=== PATIENT | female | born 1955 | race Caucasian/White ===

== ENCOUNTER → 2023-04-28 08:20 | Outpatient (REF) | payer MEDICARE, OTHER, SELFPAY ==
[2023-04-28 09:18] LABS: ALT (SGPT) 17 U/L (0-35); AST (SGOT) 26 U/L (14-36); Albumin 4.1 g/dl (3.5-5.0); Alkaline Phosphatase 69 U/L (38-126); Blood Urea Nitrogen 22 mg/dl (7-17); Calcium 9.1 mg/dl (8.4-10.2); Carbon Dioxide 32 mmol/L (22-30); Chloride 101 mmol/L (98-107); Glucose 91 mg/dl (70-99); Potassium 4.3 mmol/L (3.5-5.1); Sodium 136 mmol/L (135-145); Total Bilirubin 1.2 mg/dl (0.2-1.3); Total Protein 6.6 g/dl (6.3-8.2); eGFR > 60.00
[2023-04-28 09:35] LABS: Intact PTH 45.2 pg/ml (13.6-85.8)
[2023-04-28 09:36] LABS: Vitamin D, 25-OH*** 43.9 ng/mL (30-80)
[2023-04-28 09:49] LABS: Cortisol, Random 14.3 ug/dl
[2023-05-01 21:07] LABS: Albumin 4.04 g/dL (3.75-5.01); Alpha 1 Globulin 0.22 g/dL (0.19-0.46); SPEP IFE Reflex Not Done; Total Protein-Electrophoresis 6.5 g/dL (6.3-8.2)
== END ==
LOC: REG 08:20
PROVIDERS: ATTENDING PHYSICIAN Physician Assistant; FAMILY PHYSICIAN Internal Medicine
DX: E21.5 Disorder of parathyroid gland, unspecified (principal); E55.9 Vitamin D deficiency, unspecified; M81.0 Age-related osteoporosis without current pathological fracture
CPT/HCPCS: 36415; 80053; 82306; 82533; 83970; 84155; 84165

== ENCOUNTER → 2023-05-01 12:31 | Outpatient (REF) | payer MEDICARE, OTHER, SELFPAY | LOC: PAVMRI 12:31 | PROVIDERS: ATTENDING PHYSICIAN Orthopaedic Surgery; FAMILY PHYSICIAN Internal Medicine | DX: M25.511 Pain in right shoulder (principal) | CPT/HCPCS: 73221 ==

== ENCOUNTER 2023-06-22 10:12 | Emergency (ER) | payer MEDICARE, OTHER, SELFPAY ==
[2023-06-22 10:19] VITALS: BP 139/86
--- NOTE | 2023-06-22 10:54 | ED.GENMED ---
History of Present Illness
General
Chief Complaint: Heart Rate Problem
Source: patient
Exam Limitations: none
Time Seen by Provider: 06/22/23 10:32
Nursing documentation reviewed up to this point in time: agreed with
Travel History
Have you had any contact with someone who has COVID-19?: No
Do you have any symptoms of coronavirus? Fever > 100 degrees, chills, cough, shortness of breath, sore throat, loss of taste or smell, muscle aches, or headache?: No
History of Present Illness
History of Present Illness:
67-year-old female presents for department due to elevated heart rate of 168 while on stair climber. She states it does not usually get this time. She does use the stair climber frequently. She denies any chest pain or shortness of breath, just
felt her heart rate elevated. While getting EKG, she states she felt it break and now feels fine.
Past History
Past History
ED Past Medical History: GERD and Other (Reactive airway disease, anemia)
ED Past Surgical History: None and Other (Right finger cyst removal, oral surgery)
Social History
Tobacco: Non-smoker
Alcohol: Occasional
Drug: None
Personal:
Living: with family
Review of Systems
Review of Systems
Allergies reviewed?: Yes
All Other Systems: Not applicable
Constitutional: Reports no symptoms
EENT: Reports no symptoms
Respiratory: Reports no symptoms; Denies trouble breathing
Cardiac: Reports palpitations; Denies chest pain or syncope
ABD/GI: Reports no symptoms
: Reports no symptoms
Musculoskeletal: Reports no symptoms
Skin: Reports no symptoms
Neurological: Reports no symptoms
Endocrine: Reports no symptoms
Hematologic/Lymphatic: Reports no symptoms
Psychiatric: Reports no symptoms
Phy Exam
Physical Exam
Physical Exam:
Physical Exam
General: no apparent distress, not acutely ill
Neck: supple. no meningeal signs. normal posterior pharynx
Heart: s1/s2 regular rate and rhythm, no murmur. equal radial
pulses.
HEENT: Pupils equal round reactive to light, EOMI
Lungs: no acute respiratory distress. clear bilaterally
Abdomen: normal bowel sounds. not tender. no CVAT
Neuro: alert and oriented. no focal neurological deficits cranial nerves II through XII intact
Skin: no rash
Psychiatric: well kept. interactive and cooperative
Extremities: no edema. no calf tenderness. negative homans. good distal pulses
Course
Orders/Labs/Results
Orders:
Orders
06/22/23 10:15
ECG [Electrocardiogram (*1)] Urgent
Reason for Study: Palpitations
EKG- Treatment ONCE
06/22/23 10:52
IV Insert/Care/Rem.- Treatment PRN
06/22/23 11:01
Complete Blood Count/With Diff Urgent
Comprehensive Metabolic Panel Urgent
TSH Reflex To Free T4 Urgent
Troponin I Urgent
Abnormal Lab Results
06/22/23
11:01
MCHC 32.8 L g/dL
(33.0-37.0)
Sodium 134 L mmol/L
(135-145)
BUN 24 H mg/dl
(7-17)
06/22/23 11:01
06/22/23 11:01
Vital Signs
Initial and Last Documented VS:
Initial Vital Signs
Temp Pulse Resp BP Pulse Ox
98.7 F 96 16 139/86 99
06/22/23 10:19 06/22/23 10:19 06/22/23 10:19 06/22/23 10:19 06/22/23 10:19
Last Documented Vital Signs
Temp Pulse Resp BP Pulse Ox
98.7 F 78 17 116/68 99
06/22/23 10:19 06/22/23 11:57 06/22/23 11:57 06/22/23 11:57 06/22/23 11:57
MDM/Problems Addressed
Differential Diagnosis Includes:
Dysrhythmia, electrolyte disturbance
MDM/Problems Addressed:
67-year-old female with tachycardia, unclear etiology. No tachycardia while in ED. No chest pain. Stable for discharge. Patient will follow-up with cardiology. Return precautions given.
*Pulse Oximetry
Patient hypoxic: no
*EKG
Interpreted by ED Provider?: Yes
EKG Intrepretation Date: 06/22/23
EKG Intrepretation Time: 10:17
Interpretation: abnormal
Comparison EKG: changes noted
Heart Rate: 103
Rate: tachycardiac
Rhythm: sinus
[place]: normal axis
Interval: normal interval
QRS Pattern: normal QRS
Ischemia: non-specific ST changes
*Pipe Roller Interpretation
Rate: normal
Interpretation: normal
Heart Rate: 80
Rhythm: sinus
*Critical Care Note
Total Time (30-74mins, 75-104mins- exclusive of procedures): Not Applicable
Patient Management
Social determinants of health affecting care: Living situation
Escalation/DeEscalation of care consider admission/obs:
Admit not indicated
ED Attending Note
-
Portions of this chart may have been created with voice recognition software.� Occasional wrong word or��sound alike� substitutions may have occurred due to the inherent limitations of voice recognition software.
Discharge Plan
Departure
Patient Disposition: Home (Routine Discharge)
Date of Disposition: 06/22/23
Time of Disposition: 12:12
Patient with high blood pressure during this ER visit?: No
Condition: Good
Discharge Problem:
Tachycardia
Instructions: Tachycardia
Referrals:
Kyle Morrell MD [Family Provider] -
Shayne Osorio MD [Active] - Call in 1-3 days for appt
Interventions
Interventions:
*Risk Screen - Suicide Last Done: 06/22/23 10:19
*General Assessment Last Done: 06/22/23 10:19
*Neglect/Abuse Screening Last Done: 06/22/23 10:19
ED- Fall Risk Assessment Last Done: 06/22/23 12:20
*ED COVID-19 Vaccine History Last Done: 06/22/23 10:38
*Nursing Disposition Last Done: 06/22/23 12:20
ED- Cardiac Assessment Last Done: 06/22/23 10:44
ED- Pulmonary Assessment Last Done: 06/22/23 10:44
Discharge Date and Time
Discharge Date/Time: 06/22/23 12:22
Print Language: ROMANSH
[2023-06-22 11:10] LABS: % Basophils 0.7 % (0-2); % Eosinophils 2.5 % (0-6); % Immature Granulocytes 0.1 % (0-0.5); % Lymphocytes 22.6 % (20.5-51.1); % Monocytes 7.5 % (1.7-9.3); % Neutrophils 66.6 % (42.2-75.2); Absolute Basophils 0.1 10^3/uL (0-0.2); Absolute Eosinophils 0.2 10^3/uL (0-0.7); Absolute Lymphocytes 1.5 10^3/uL (1.2-3.4); Absolute Monocytes 0.5 10^3/uL (0.1-0.6); Absolute Neutrophils 4.4 10^3/uL (1.4-6.5); Hematocrit 40.5 % (37.0-47.0); Hemoglobin 13.3 g/dL (12.0-16.0); Mean Corp Hgb Conc. 32.8 g/dL (33.0-37.0); Mean Corpuscular Hgb 29.2 pg (27.0-31.0); Mean Platelet Volume 8.7 fL (7.4-10.4); Nucleated Red Blood Cells % 0 %; Platelet Count 275 10^3/uL (130-400); Red Blood Cell Count 4.55 10^6/uL (4.20-5.40); Red Cell Dist. Width 14.2 % (11.5-14.5); White Blood Cell Count 6.7 10^3/uL (4.8-10.8)
[2023-06-22 11:32] LABS: ALT (SGPT) 19 U/L (0-35); AST (SGOT) 28 U/L (14-36); Albumin 4.7 g/dl (3.5-5.0); Alkaline Phosphatase 58 U/L (38-126); Blood Urea Nitrogen 24 mg/dl (7-17); Carbon Dioxide 29 mmol/L (22-30); Chloride 98 mmol/L (98-107); Glucose 98 mg/dl (70-99); Sodium 134 mmol/L (135-145); Total Bilirubin 1.2 mg/dl (0.2-1.3); Total Protein 7.4 g/dl (6.3-8.2); Troponin I < 0.012 ng/ml; eGFR > 60.00
[2023-06-22 11:57] VITALS: BP 116/68
[2023-06-22 11:57] LABS: Potassium 4.3 mmol/L (3.5-5.1)
[2023-06-22 12:01] LABS: TSH Reflex To Free T4 2.97 uIU/ml (0.47-4.68)
== END 2023-06-22 12:22 | disposition home or self-care (01) ==
LOC: EMR 10:12
PROVIDERS: EMERGENCY PHYSICIAN Emergency Medicine; FAMILY PHYSICIAN Internal Medicine
DX: R00.0 Tachycardia, unspecified (principal); K21.9 Gastro-esophageal reflux disease without esophagitis; J45.909 Unspecified asthma, uncomplicated; D64.9 Anemia, unspecified
CPT/HCPCS: 99283; 80053; 84443; 84484; 85025; 93005

== ENCOUNTER → 2023-09-11 07:01 | Outpatient (REF) | payer MEDICARE, OTHER, SELFPAY | LOC: MRI 3T 07:01 | PROVIDERS: ATTENDING PHYSICIAN Orthopaedic Surgery; REFERRING PHYSICIAN Student in an Organized Health Care Education/Training Program | DX: M25.561 Pain in right knee (principal) | CPT/HCPCS: 73721 ==

== ENCOUNTER → 2023-09-17 09:54 | Outpatient (REF) | payer MEDICARE, OTHER, SELFPAY | LOC: RCS 09:54 | PROVIDERS: ATTENDING PHYSICIAN Internal Medicine Cardiovascular Disease; FAMILY PHYSICIAN Student in an Organized Health Care Education/Training Program | DX: R00.0 Tachycardia, unspecified (principal); I47.10 Supraventricular tachycardia, unspecified | CPT/HCPCS: 93306 ==

== ENCOUNTER → 2023-10-18 08:13 | Outpatient (REF) | payer MEDICARE, OTHER, SELFPAY ==
[2023-10-18 09:15] LABS: % Basophils 0.8 % (0-2); % Eosinophils 3.7 % (0-6); % Immature Granulocytes 0.2 % (0-0.5); % Lymphocytes 39.9 % (20.5-51.1); % Monocytes 9.4 % (1.7-9.3); Absolute Eosinophils 0.2 10^3/uL (0-0.7); Absolute Monocytes 0.5 10^3/uL (0.1-0.6); Absolute Neutrophils 2.4 10^3/uL (1.4-6.5); Hematocrit 35.7 % (37.0-47.0); Hemoglobin 11.6 g/dL (12.0-16.0); Mean Corp Hgb Conc. 32.5 g/dL (33.0-37.0); Mean Corpuscular Hgb 28.4 pg (27.0-31.0); Mean Corpuscular Volume 87.3 fL (81.0-99.0); Mean Platelet Volume 8.9 fL (7.4-10.4); Nucleated Red Blood Cells % 0 %; Platelet Count 263 10^3/uL (130-400); Red Blood Cell Count 4.09 10^6/uL (4.20-5.40); Red Cell Dist. Width 14.4 % (11.5-14.5); White Blood Cell Count 5.1 10^3/uL (4.8-10.8)
[2023-10-18 12:22] LABS: ALT (SGPT) 18 U/L (0-35); AST (SGOT) 26 U/L (14-36); Albumin 4.3 g/dl (3.5-5.0); Alkaline Phosphatase 47 U/L (38-126); Blood Urea Nitrogen 18 mg/dl (7-17); Carbon Dioxide 28 mmol/L (22-30); Chloride 100 mmol/L (98-107); Glucose 90 mg/dl (70-99); Potassium 4.1 mmol/L (3.5-5.1); Sodium 135 mmol/L (135-145); Total Bilirubin 1.1 mg/dl (0.2-1.3); Total Protein 6.6 g/dl (6.3-8.2); eGFR > 60.00
== END ==
LOC: REG 08:13
PROVIDERS: ATTENDING PHYSICIAN Internal Medicine Rheumatology; FAMILY PHYSICIAN Student in an Organized Health Care Education/Training Program
DX: M81.0 Age-related osteoporosis without current pathological fracture (principal); M25.511 Pain in right shoulder; Z51.81 Encounter for therapeutic drug level monitoring
CPT/HCPCS: 36415; 80053; 85025

== ENCOUNTER → 2024-01-04 12:21 | Outpatient (REF) | payer MEDICARE, OTHER, SELFPAY | LOC: WDC 12:21 | PROVIDERS: ATTENDING PHYSICIAN Obstetrics & Gynecology; FAMILY PHYSICIAN Student in an Organized Health Care Education/Training Program | DX: Z12.31 Encounter for screening mammogram for malignant neoplasm of breast (principal) | CPT/HCPCS: 77063; 77067 ==

== ENCOUNTER → 2024-01-23 11:02 | Outpatient (REF) | payer MEDICARE, OTHER, SELFPAY ==
[2024-01-23 12:01] LABS: % Immature Granulocytes 0.2 % (0-0.5); % Lymphocytes 44.3 % (20.5-51.1); % Monocytes 9.7 % (1.7-9.3); % Neutrophils 40.8 % (42.2-75.2); Absolute Basophils 0.1 10^3/uL (0-0.2); Absolute Eosinophils 0.2 10^3/uL (0-0.7); Absolute Lymphocytes 2.2 10^3/uL (1.2-3.4); Absolute Monocytes 0.5 10^3/uL (0.1-0.6); Absolute Neutrophils 2.1 10^3/uL (1.4-6.5); Hematocrit 36.2 % (37.0-47.0); Hemoglobin 11.8 g/dL (12.0-16.0); Mean Corp Hgb Conc. 32.6 g/dL (33.0-37.0); Mean Corpuscular Hgb 28.1 pg (27.0-31.0); Mean Corpuscular Volume 86.2 fL (81.0-99.0); Mean Platelet Volume 9.1 fL (7.4-10.4); Nucleated Red Blood Cells % 0 %; Platelet Count 307 10^3/uL (130-400); Red Cell Dist. Width 14.2 % (11.5-14.5); White Blood Cell Count 5.1 10^3/uL (4.8-10.8)
[2024-01-23 12:41] LABS: HDL Cholesterol 91 mg/dl; Iron 70 ug/dl (37-170); LDL Cholesterol, Calculated 141 mg/dl; Total Cholesterol 240 mg/dl (50-199); Triglyceride 44 mg/dl (10-149); Very Low Density Lipoprotein 8 mg/dl (0-30)
[2024-01-23 12:52] LABS: Percent Saturation 15 % (20-50); Total Iron Binding Capacity 455 ug/dl (265-497)
[2024-01-23 13:12] LABS: Ferritin 6.1 ng/ml (11.1-264.0)
[2024-01-23 13:26] LABS: Vitamin B12 805 pg/ml (239-931)
== END ==
LOC: REG 11:02
PROVIDERS: ATTENDING PHYSICIAN Student in an Organized Health Care Education/Training Program
DX: E78.00 Pure hypercholesterolemia, unspecified (principal); D64.9 Anemia, unspecified; Z79.899 Other long term (current) drug therapy
CPT/HCPCS: 36415; 80061; 82607; 82728; 83540; 83550; 85025

== ENCOUNTER 2024-02-11 09:26 | Outpatient (RCR) | payer MEDICARE, OTHER, SELFPAY ==
[2024-02-04 10:50] VITALS: BP 107/62
[2024-02-04] MEDS: INJECTAFER 265 MG IV (11:10)
[2024-02-04 11:58] VITALS: BP 114/61
[2024-02-11] MEDS: INJECTAFER 265 MG IV (09:48)
[2024-02-11 09:55] VITALS: BP 120/51
[2024-02-11 10:39] VITALS: BP 103/59
== END 2024-02-12 08:44 | disposition home or self-care (01) ==
LOC: OID 09:26
PROVIDERS: ATTENDING PHYSICIAN Student in an Organized Health Care Education/Training Program
DX: D50.9 Iron deficiency anemia, unspecified (principal)
CPT/HCPCS: 96365; J1439

== ENCOUNTER → 2024-03-26 09:22 | Outpatient (REF) | payer MEDICARE, OTHER, SELFPAY ==
[2024-03-26 11:17] LABS: % Basophils 0.7 % (0-2); % Eosinophils 3.3 % (0-6); % Immature Granulocytes 0.2 % (0-0.5); % Lymphocytes 33.3 % (20.5-51.1); % Monocytes 8.6 % (1.7-9.3); % Neutrophils 53.9 % (42.2-75.2); Absolute Eosinophils 0.2 10^3/uL (0-0.7); Absolute Monocytes 0.5 10^3/uL (0.1-0.6); Absolute Neutrophils 3.3 10^3/uL (1.4-6.5); Hematocrit 41.5 % (37.0-47.0); Hemoglobin 13.3 g/dL (12.0-16.0); Mean Corpuscular Hgb 29.7 pg (27.0-31.0); Mean Corpuscular Volume 92.6 fL (81.0-99.0); Mean Platelet Volume 9.5 fL (7.4-10.4); Nucleated Red Blood Cells % 0 %; Platelet Count 259 10^3/uL (130-400); Red Blood Cell Count 4.48 10^6/uL (4.20-5.40); Red Cell Dist. Width 19.5 % (11.5-14.5)
[2024-03-26 11:32] LABS: Iron 129 ug/dl (37-170)
[2024-03-26 11:42] LABS: Percent Saturation 47 % (20-50); Total Iron Binding Capacity 271 ug/dl (265-497)
== END ==
LOC: REG 09:22
PROVIDERS: ATTENDING PHYSICIAN Student in an Organized Health Care Education/Training Program; FAMILY PHYSICIAN Internal Medicine Gastroenterology; OTHER PHYSICIAN Internal Medicine Cardiovascular Disease; REFERRING PHYSICIAN Obstetrics & Gynecology
DX: E61.1 Iron deficiency (principal)
CPT/HCPCS: 36415; 82728; 83540; 83550; 85025

== ENCOUNTER → 2024-04-07 13:02 | Outpatient (REF) | payer MEDICARE, OTHER, SELFPAY | LOC: RAD 13:02 | PROVIDERS: ATTENDING PHYSICIAN Internal Medicine Cardiovascular Disease; FAMILY PHYSICIAN Student in an Organized Health Care Education/Training Program | DX: Z91.89 Other specified personal risk factors, not elsewhere classified (principal) | CPT/HCPCS: 75571 ==

== ENCOUNTER 2024-04-17 06:28 | Day surgery (SDC) | payer MEDICARE, OTHER, SELFPAY | END 2024-04-17 12:41 | disposition home or self-care (01) | LOC: GI 06:28 | PROVIDERS: ATTENDING PHYSICIAN Internal Medicine Gastroenterology | DX: D50.0 Iron deficiency anemia secondary to blood loss (chronic) (principal); K57.30 Diverticulosis of large intestine without perforation or abscess without bleeding; K64.0 First degree hemorrhoids; R12 Heartburn; K31.7 Polyp of stomach and duodenum; K63.5 Polyp of colon; K29.50 Unspecified chronic gastritis without bleeding; K31.A19 Gastric intestinal metaplasia without dysplasia, unspecified site; Z86.0100 Personal history of colon polyps, unspecified | CPT/HCPCS: 45380; 43239; 88305; 88342 ==

== ENCOUNTER → 2024-05-13 07:46 | Outpatient (REF) | payer MEDICARE, OTHER, SELFPAY ==
[2024-05-13 08:20] LABS: % Basophils 0.5 % (0-2); % Eosinophils 5.1 % (0-6); % Immature Granulocytes 0.2 % (0-0.5); % Lymphocytes 32.9 % (20.5-51.1); % Neutrophils 52.3 % (42.2-75.2); Absolute Eosinophils 0.3 10^3/uL (0-0.7); Absolute Lymphocytes 2.1 10^3/uL (1.2-3.4); Absolute Monocytes 0.6 10^3/uL (0.1-0.6); Absolute Neutrophils 3.3 10^3/uL (1.4-6.5); Hematocrit 41.8 % (37.0-47.0); Hemoglobin 13.8 g/dL (12.0-16.0); Mean Corpuscular Hgb 31.7 pg (27.0-31.0); Mean Corpuscular Volume 95.9 fL (81.0-99.0); Nucleated Red Blood Cells % 0 %; Platelet Count 246 10^3/uL (130-400); Red Blood Cell Count 4.36 10^6/uL (4.20-5.40); Red Cell Dist. Width 14.8 % (11.5-14.5); White Blood Cell Count 6.2 10^3/uL (4.8-10.8)
[2024-05-13 09:04] LABS: ALT (SGPT) 24 U/L (0-35); AST (SGOT) 24 U/L (14-36); Albumin 4.7 g/dl (3.5-5.0); Alkaline Phosphatase 45 U/L (38-126); Blood Urea Nitrogen 18 mg/dl (7-17); Calcium 9.6 mg/dl (8.4-10.2); Carbon Dioxide 31 mmol/L (22-30); Chloride 98 mmol/L (98-107); Glucose 99 mg/dl (70-99); Potassium 4.4 mmol/L (3.5-5.1); Sodium 137 mmol/L (135-145); Total Bilirubin 1.2 mg/dl (0.2-1.3); eGFR > 60.00
== END ==
LOC: REG 07:46
PROVIDERS: ATTENDING PHYSICIAN Internal Medicine Rheumatology; FAMILY PHYSICIAN Student in an Organized Health Care Education/Training Program
DX: M25.511 Pain in right shoulder (principal); M81.0 Age-related osteoporosis without current pathological fracture; Z51.81 Encounter for therapeutic drug level monitoring
CPT/HCPCS: 36415; 80053; 85025

== ENCOUNTER → 2024-09-02 07:27 | Outpatient (REF) | payer MEDICARE, OTHER, SELFPAY ==
[2024-09-02 08:43] LABS: % Basophils 0.7 % (0-2); % Eosinophils 2.9 % (0-6); % Immature Granulocytes 0.2 % (0-0.5); % Monocytes 8.5 % (1.7-9.3); % Neutrophils 46.7 % (42.2-75.2); Absolute Eosinophils 0.2 10^3/uL (0-0.7); Absolute Lymphocytes 2.5 10^3/uL (1.2-3.4); Absolute Monocytes 0.5 10^3/uL (0.1-0.6); Absolute Neutrophils 2.9 10^3/uL (1.4-6.5); Hematocrit 42.9 % (37.0-47.0); Hemoglobin 14.3 g/dL (12.0-16.0); Mean Corp Hgb Conc. 33.3 g/dL (33.0-37.0); Mean Corpuscular Hgb 32.5 pg (27.0-31.0); Mean Corpuscular Volume 97.5 fL (81.0-99.0); Mean Platelet Volume 9.2 fL (7.4-10.4); Nucleated Red Blood Cells % 0 %; Platelet Count 275 10^3/uL (130-400); Red Cell Dist. Width 11.9 % (11.5-14.5); White Blood Cell Count 6.1 10^3/uL (4.8-10.8)
[2024-09-02 09:16] LABS: Iron 119 ug/dl (37-170)
== END ==
LOC: REG 07:27
PROVIDERS: ATTENDING PHYSICIAN Internal Medicine Gastroenterology; FAMILY PHYSICIAN Student in an Organized Health Care Education/Training Program
DX: D50.0 Iron deficiency anemia secondary to blood loss (chronic) (principal)
CPT/HCPCS: 36415; 82728; 83540; 85025

== ENCOUNTER 2024-09-22 06:24 | Day surgery (SDC) | payer MEDICARE, OTHER, SELFPAY | END 2024-09-22 11:41 | LOC: GI 06:24 | PROVIDERS: ATTENDING PHYSICIAN Internal Medicine Gastroenterology; FAMILY PHYSICIAN Student in an Organized Health Care Education/Training Program | DX: K31.7 Polyp of stomach and duodenum (principal); K31.89 Other diseases of stomach and duodenum; K31.A0 Gastric intestinal metaplasia, unspecified; K29.60 Other gastritis without bleeding | CPT/HCPCS: 43239; 88305; 88342 ==

== ENCOUNTER → 2024-11-13 09:35 | Outpatient (REF) | payer MEDICARE, OTHER, SELFPAY ==
[2024-11-13 10:10] LABS: Hematocrit 41.6 % (37.0-47.0); Hemoglobin 13.9 g/dL (12.0-16.0); Mean Corp Hgb Conc. 33.4 g/dL (33.0-37.0); Mean Corpuscular Volume 95.9 fL (81.0-99.0); Nucleated Red Blood Cells % 0 %; Platelet Count 263 10^3/uL (130-400); Red Cell Dist. Width 11.8 % (11.5-14.5)
[2024-11-13 10:37] LABS: ALT (SGPT) 31 U/L (0-35); AST (SGOT) 29 U/L (14-36); Albumin 4.5 g/dl (3.5-5.0); Alkaline Phosphatase 42 U/L (38-126); Blood Urea Nitrogen 15 mg/dl (7-17); Calcium 9.3 mg/dl (8.4-10.2); Carbon Dioxide 30 mmol/L (22-30); Chloride 103 mmol/L (98-107); Glucose 88 mg/dl (70-99); Potassium 4.3 mmol/L (3.5-5.1); Sodium 139 mmol/L (135-145); Total Protein 7.2 g/dl (6.3-8.2); eGFR > 60.00
== END ==
LOC: REG 09:35
PROVIDERS: ATTENDING PHYSICIAN Internal Medicine Rheumatology; FAMILY PHYSICIAN Student in an Organized Health Care Education/Training Program
DX: M25.511 Pain in right shoulder (principal); M81.0 Age-related osteoporosis without current pathological fracture; Z51.81 Encounter for therapeutic drug level monitoring
CPT/HCPCS: 36415; 80053; 85025

== ENCOUNTER → 2025-01-06 12:43 | Outpatient (REF) | payer MEDICARE, OTHER, SELFPAY | LOC: WDC 12:43 | PROVIDERS: ATTENDING PHYSICIAN Obstetrics & Gynecology; FAMILY PHYSICIAN Student in an Organized Health Care Education/Training Program | DX: Z12.31 Encounter for screening mammogram for malignant neoplasm of breast (principal) | CPT/HCPCS: 77063; 77067 ==

== ENCOUNTER → 2025-02-18 13:52 | Outpatient (REF) | payer MEDICARE, OTHER, SELFPAY | LOC: RAD 13:52 | PROVIDERS: ATTENDING PHYSICIAN Internal Medicine Rheumatology; FAMILY PHYSICIAN Student in an Organized Health Care Education/Training Program; OTHER PHYSICIAN Obstetrics & Gynecology | DX: M85.00 Fibrous dysplasia (monostotic), unspecified site (principal); M81.0 Age-related osteoporosis without current pathological fracture | CPT/HCPCS: 77080 ==